=== PATIENT | male | born 1960 | race African-American/Black ===

== ENCOUNTER → 2017-01-31 | Outpatient (CLI) | payer BC | LOC: BMCIMAGING 12:09 | PROVIDERS: ATTEND Family Medicine | DX: M79.674 Pain in right toe(s) (principal); M79.89 Other specified soft tissue disorders ==

== ENCOUNTER 2017-04-17 11:39 | Emergency (ER) | payer BC, OTHER ==
[2017-04-17 11:44] VITALS: TEMP 98.6
--- NOTE | 2017-04-17 12:30 | EDPHY ---
H & P Stated Complaint: R flank pain x 2 wks;+hematuria;hx kidney stones Time Seen by Provider: 04/17/17 12:16 HPI/ROS: CHIEF COMPLAINT: Right flank pain x2 weeks HISTORY OF PRESENT ILLNESS: 56-year-old male history of nephrolithiasis with lithotripsy in the past, most recently 10 years ago, complaining of 2 weeks of dull ache in the right flank with intermittent sharp stabbing pain and development of urinary clots few days ago which have now resolved. By enlarged his pain has resolved and is no longer described as sharp stabbing however he continues to experience a dull ache in the right flank region with radiation is abdomen which feels similar to prior episodes of nephrolithiasis. He denies: Nausea, vomiting, fever, chills, increased frequency, chest pain, other back pain, dyspnea. PRIMARY CARE PROVIDER: Dr. Harpreet Vasquez and primary Urology Dr. Boris Fernandez REVIEW OF SYSTEMS: A ten point review of systems was performed and is negative with the exception of the items mentioned in the HPI PAST MEDICAL & SURGICAL HISTORY: Nephrolithiasis with lithotripsy 10 years ago SOCIAL HISTORY: Nonsmoker PHYSICAL EXAM (Prior to examination, patient consented to physical exam, hands were washed and my usual and customary physical exam procedures followed) 1) GENERAL: Well-developed, well-nourished, alert and oriented. Appears to be in no acute distress. 2) HEAD: Normocephalic, atraumatic 3) HEENT: Pupils equal, round, reactive to light bilaterally. Sclera anicteric. 4) NECK: Full range of motion, no meningeal signs. 5) LUNGS: Clear auscultation bilaterally, no wheezes, no rhonchi, no retractions. 6) HEART: Regular rate and rhythm, no murmur, no heave, no gallop. 7) ABDOMEN: No guarding, no rebound, no focal tenderness, 8) MUSCULOSKELETAL: No peripheral edema or discoloration. 9) BACK: No CVA tenderness. 10) SKIN: No rash, no petechiae. 11) : Normal male external genitalia, uncircumcised, bilateral testicles nontender bilateral cremasteric reflex present and brisk DIFFERENTIAL DIAGNOSIS: in no particular include but limited to nephrolithiasis, pyelonephritis, ureterolithiasis - Personal History Current Tetanus Diphtheria and Acellular Pertussis (TDAP): Yes - Medical/Surgical History Hx Renal Disease: Yes Other PMH: kidney stones/lithotripsy - Social History Smoking Status: Never smoked Constitutional: Initial Vital Signs Temperature (C) 37 C 04/17/17 11:40 Heart Rate 68 04/17/17 11:40 Respiratory Rate 16 04/17/17 11:40 Blood Pressure 143/100 H 04/17/17 11:40 O2 Sat (%) 96 04/17/17 11:40 O2 Delivery Mode Room Air Allergies/Adverse Reactions: No Known Allergies Allergy (Verified 04/17/17 11:40) Home Medications: Medication Instructions Recorded Hydrocodone/APAP 5/325 [[place] 1 tab PO Q6 PRN #10 tab 04/17/17 5/325 (RX)] Tamsulosin HCl [Flomax] 0.4 mg PO DAILY #7 cap 04/17/17 Medical Decision Making - Diagnostics Imaging Results: Imaging Impressions Abdomen/Pelvis CT 04/17/17 12:28 Impression: 1. 11-mm stone at the right ureteropelvic junction causing moderate obstructive uropathy. 2. Bilateral nephrolithiasis. 3. Constipation. 4. Additional findings as above. Findings discussed with Bettye Mark PA-C, 04/17/2017 at 1304 hours. Attention: This CT examination is specifically designed to evaluate patients who are clinically suspected of having acute obstructive uropathy. This examination does not use radiographic contrast, and as such, provides only a limited evaluation of the abdomen, pelvis and retroperitoneum. If there is further clinical suspicion for pathological conditions other than obstructive uropathy, a complete CT evaluation of the abdomen and pelvis utilizing intravenous and oral contrast should be considered. Images reviewed by myself ED Course/Re-evaluation: This patient was re-evaluated with serial examinations. He was given IV hydration and BUN creatinine rechecked, Discussed the case with secondary supervising physician Dr. Russell Marie. I consulted with the patient's urologist Dr. Boris Fernandez at 2:57 p.m.. As the patient's pain is currently controlled he recommended follow up on outpatient basis in the office. I discussed this with the patient and the patient is agreeable with this but does note that his health insurance has changed recently from and thumb to [employer] and that Dr. Fernandez's office does not accept [employer]; however, [facility] does accept [employer]. Patient has been given follow-up information for [facility] Dr. Geovanni Mitchell for follow-up. Patient has been given usual customary nephrolithiasis precautions and instructions.Care and management in consultation with secondary supervising physician Dr Marie. - Data Points Laboratory Results: Laboratory Results 04/17/17 12:05 04/17/17 14:08 04/17/17 04/17/17 04/17/17 14:08 12:05 12:05 WBC RBC Hgb Hct MCV MCH MCHC RDW Plt Count MPV Neut % (Auto) Lymph % (Auto) Mower % (Auto) Eos % (Auto) Baso % (Auto) Nucleat RBC Rel Count Absolute Neuts (auto) Absolute Lymphs (auto) Absolute Monos (auto) Absolute Eos (auto) Absolute Basos (auto) Absolute Nucleated RBC Immature Gran % Immature Gran # Sodium 140 mEq/L mEq/L 141 mEq/L mEq/L (134-144) (134-144) Potassium 4.1 mEq/L mEq/L 4.2 mEq/L mEq/L (3.5-5.2) (3.5-5.2) Chloride 108 mEq/L mEq/L 105 mEq/L mEq/L (97-110) (97-110) Carbon Dioxide 22 mEq/l mEq/l 24 mEq/l mEq/l (22-31) (22-31) Anion Gap 10 mEq/L mEq/L 12 mEq/L mEq/L (8-16) (8-16) BUN 21 mg/dL mg/dL 24 mg/dL H mg/dL (7-23) (7-23) Creatinine 1.6 mg/dL H mg/dL 1.7 mg/dL H mg/dL (0.7-1.3) (0.7-1.3) Estimated GFR 45 42 Glucose 92 mg/dL mg/dL 97 mg/dL mg/dL (70-100) (70-100) Calcium 8.3 mg/dL L mg/dL 9.6 mg/dL mg/dL (8.5-10.4) (8.5-10.4) Urine Color YELLOW Urine Appearance CLEAR Urine pH 5.0 (5.0-7.5) Ur Specific [place] 1.016 (1.002-1.030) Urine Protein NEGATIVE (NEGATIVE) Urine Ketones NEGATIVE (NEGATIVE) Urine Blood 1+ H (NEGATIVE) Urine Nitrate NEGATIVE (NEGATIVE) Urine Bilirubin NEGATIVE (NEGATIVE) Urine Urobilinogen NEGATIVE EU EU (0.2-1.0) Ur Leukocyte Esterase NEGATIVE (NEGATIVE) Urine RBC 3-5 /hpf H /hpf (0-3) Urine WBC NONE SEEN /hpf /hpf (0-3) Ur Epithelial Cells NONE SEEN /lpf /lpf (NONE-1+) Urine Mucus TRACE /lpf /lpf (NONE-1+) Urine Glucose NEGATIVE (NEGATIVE) 04/17/17 12:05 WBC 4.80 10^3/uL 10^3/uL (3.80-9.50) RBC 5.35 10^6/uL 10^6/uL (4.40-6.38) Hgb 15.7 g/dL g/dL (13.7-17.5) Hct 46.2 % % (40.0-51.0) MCV 86.4 fL fL (81.5-99.8) MCH 29.3 pg pg (27.9-34.1) MCHC 34.0 g/dL g/dL (32.4-36.7) RDW 13.1 % % (11.5-15.2) Plt Count 181 10^3/uL 10^3/uL (150-400) MPV 9.7 fL fL (8.7-11.7) Neut % (Auto) 48.2 % % (39.3-74.2) Lymph % (Auto) 37.1 % % (15.0-45.0) Mower % (Auto) 10.8 % % (4.5-13.0) Eos % (Auto) 3.1 % % (0.6-7.6) Baso % (Auto) 0.6 % % (0.3-1.7) Nucleat RBC Rel Count 0.0 % % (0.0-0.2) Absolute Neuts (auto) 2.31 10^3/uL 10^3/uL (1.70-6.50) Absolute Lymphs (auto) 1.78 10^3/uL 10^3/uL (1.00-3.00) Absolute Monos (auto) 0.52 10^3/uL 10^3/uL (0.30-0.80) Absolute Eos (auto) 0.15 10^3/uL 10^3/uL (0.03-0.40) Absolute Basos (auto) 0.03 10^3/uL 10^3/uL (0.02-0.10) Absolute Nucleated RBC 0.00 10^3/uL 10^3/uL (0-0.01) Immature Gran % 0.2 % % (0.0-1.1) Immature Gran # 0.01 10^3/uL 10^3/uL (0.00-0.10) Sodium Potassium Chloride Carbon Dioxide Anion Gap BUN Creatinine Estimated GFR Glucose Calcium Urine Color Urine Appearance Urine pH Ur Specific [place] Urine Protein Urine Ketones Urine Blood Urine Nitrate Urine Bilirubin Urine Urobilinogen Ur Leukocyte Esterase Urine RBC Urine WBC Ur Epithelial Cells Urine Mucus Urine Glucose Medications Given: Discontinued Medications Sodium Chloride (Ns) 1,000 mls @ 0 mls/hr IV ONCE ONE PRN Reason: Wide Open Stop: 04/17/17 12:37 Last Admin: 04/17/17 12:36 Dose: 1,000 mls Sodium Chloride (Ns) 1,000 mls @ 0 mls/hr IV ONCE ONE PRN Reason: Wide Open Stop: 04/17/17 12:46 Last Admin: 04/17/17 12:52 Dose: 1,000 mls Morphine Sulfate (Morphine) 4 mg IVP EDNOW ONE Stop: 04/17/17 12:55 Last Admin: 04/17/17 13:02 Dose: Not Given Departure - Departure Disposition: Home, Routine, Self-Care Clinical Impression: Hypovolemia, Nephrolithiasis Condition: Good Instructions: Kidney Stones (ED), Flank Pain (ED) Additional Instructions: Return to the emergency department immediately if you develop new or worsening symptoms, worsening pain Referrals: Geovanni Mitchell MD [Medical Doctor] - 2-3 days, call for appt. (Dr Mitchell is a urologist at [facility]) Prescriptions: Hydrocodone/APAP 5/325 [[place] 5/325 (RX)] 1 tab PO Q6 PRN #10 tab PRN Reason: Pain, Severe Tamsulosin HCl [Flomax] 0.4 mg PO DAILY #7 cap
[2017-04-17 12:34] LABS: % IMMATURE GRANULYOCYTES 0.2 % (0.0-1.1); ABSOLUTE IMMATURE GRANULOCYTES 0.01 10^3/uL (0.00-0.10); ADD DIFF? NO; ADD MORPH? NO; ADD SCAN? NO; ATYPICAL LYMPHOCYTE FLAG 10 (0-99); FRAGMENT RBC FLAG 0 (0-99); HEMATOCRIT 46.2 % (40.0-51.0); HEMOGLOBIN 15.7 g/dL (13.7-17.5); LEFT SHIFT FLG 0 (0-99); LIPEMIA HEMOLYSIS FLAG 90 (0-99); MEAN CELL HEMOGLOBIN 29.3 pg (27.9-34.1); MEAN CELL VOLUME 86.4 fL (81.5-99.8); MEAN PLATELET VOLUME 9.7 fL (8.7-11.7); PLATELET CLUMPS FLAG 10 (0-99); PLATELET COUNT 181 10^3/uL (150-400); RED BLOOD CELL COUNT 5.35 10^6/uL (4.40-6.38); RED CELL DISTRIBUTION WIDTH 13.1 % (11.5-15.2)
[2017-04-17] MEDS ORDERED: NS 1,000 ML IV ONE ×2 (12:36→12:45)
[2017-04-17 12:38] LABS: COLOR YELLOW; LEUKOCYTE ESTERASE,URINE NEGATIVE (NEGATIVE); NITRITE,URINE NEGATIVE (NEGATIVE)
[2017-04-17 12:40] LABS: ANION GAP 12 mEq/L (8-16); CALCIUM 9.6 mg/dL (8.5-10.4); CARBON DIOXIDE 24 mEq/l (22-31); CHLORIDE 105 mEq/L (97-110); CREATININE 1.7 mg/dL (0.7-1.3); GLOMERULAR FILTRATION RATE 42; GLUCOSE 97 mg/dL (70-100); POTASSIUM 4.2 mEq/L (3.5-5.2); SODIUM 141 mEq/L (134-144)
[2017-04-17 12:42] LABS: MUCUS TRACE /lpf (NONE-1+)
[2017-04-17 12:44] LABS: WBC,URINE NONE SEEN /hpf (0-3)
[2017-04-17 14:52] LABS: ANION GAP 10 mEq/L (8-16); CALCIUM 8.3 mg/dL (8.5-10.4); CARBON DIOXIDE 22 mEq/l (22-31); CHLORIDE 108 mEq/L (97-110); CREATININE 1.6 mg/dL (0.7-1.3); GLOMERULAR FILTRATION RATE 45; GLUCOSE 92 mg/dL (70-100); POTASSIUM 4.1 mEq/L (3.5-5.2); SODIUM 140 mEq/L (134-144)
[2017-04-17 15:43] VITALS: BP 166/100; PULSE 80; RESP 14; O2SAT 97
== END 2017-04-17 15:43 | disposition home or self-care (01) ==
DX: N20.0 Calculus of kidney (principal); E86.1 Hypovolemia

== ENCOUNTER → 2017-04-21 | Outpatient (CLI) | payer OTHER | LOC: FIMAGING 16:01 | PROVIDERS: ATTEND Physician Assistant | DX: Z09 Encounter for follow-up examination after completed treatment for conditions other than malignant neoplasm (principal); Z87.442 Personal history of urinary calculi ==

== ENCOUNTER → 2017-07-01 | Outpatient (CLI) | payer OTHER | LOC: FIMAGING 14:07 | PROVIDERS: ATTEND Urology | DX: Z09 Encounter for follow-up examination after completed treatment for conditions other than malignant neoplasm (principal); Z98.890 Other specified postprocedural states ==